=== PATIENT | female | born 1965 | race Caucasian/White ===

== ENCOUNTER 2016-12-04 15:53 | Emergency (ER) | payer OTHER ==
[~2016-12-04] VITALS: Ht 167.6 cm; Wt 50.8 kg
[2016-12-04 16:08] VITALS: BP 102/71
--- NOTE | 2016-12-04 16:22 | ED UPPER/LOWER EXTREMITY COMPL ---
History of Present Illness General Chief Complaint: Lower Extremity Problems Stated Complaint: RIGHT LEG ?BLOOD CLOT Source: patient, old records Exam Limitations: no limitations Vital Signs & Intake/Output Vital Signs & Intake/Output Vital Signs Date Time Temp Pulse Resp B/P Pulse O2 O2 Flow FiO2 Ox Delivery Rate 12/04 1608 99.7 65 20 102/71 99 Room Air Allergies Coded Allergies: No Known Allergies (12/04/16) Triage Note: TRIAGE: PT TO ER C/C PAIN TO R CALF X 2 DAYS, INTERMITTENT SINCE ONSET. WAS AT PT FOR MS TREATMENT AND THEY ADVISED SHE COME TO ER FOR EVAL. DENIES ANY RECENT TRAVEL OR BEING SEATED FOR LONG PERIODS OF TIME. DENIES ANY INJURIES. REFUSES OFFERED PAIN MEDS AT TRIAGE. Triage Nurses Notes Reviewed? yes Onset: Abrupt Duration: day(s): (2), intermittent, waxing and waning Timing: recent history Severity: mild, moderate Severity Numbers: 4 Pain/Injury Location: Right: Leg. Method of Injury: unknown Modifying Factors: Improves With: rest. Worsens With: movement. Associated Symptoms: none HPI: 51-year-old female with history of MS presents emergency room today complaining of a 2 day history of right calf pain and soreness that is worse with extension and flexion of the foot. The patient states the symptoms began after she awoke in the middle the night with a muscle cramp in her calf. The patient denies any known injury or trauma she denies swelling to her leg. She was going to physical therapy today when she told them of her symptoms and told her to come to the ER because they were concerned she had a blood clot. There is been no recent travel or immobility. She denies any chest pain shortness of breath fever chills rashes to her skin she is not taken anything for her symptoms and she denies any pain at this time. Past History Travel History Traveled to [place] past 21 day No Medical History Any Pertinent Medical History? see below for history Neurological: multiple sclerosis EENT: NONE Cardiovascular: NONE Respiratory: NONE Gastrointestinal: NONE Hepatic: NONE Renal: NONE Musculoskeletal: osteoporosis Psychiatric: NONE Endocrine: NONE Blood Disorders: ITP Cancer(s): NONE STRUCTURAL IRONWORKER/Reproductive: NONE Surgical History Surgical History: none Psychosocial History What is your primary language Albanian Tobacco Use: Never used ETOH Use: denies use Illicit Drug Use: denies illicit drug use Family History Hx Contributory? No Review of Systems Review of Systems Constitutional: Reports: see HPI. All Other Systems: Reviewed and Negative Comments Review of systems: See HPI, All other systems negative. Constitutional, no chills no fever, no malaise HEENT: No visual changes no sore throat no congestion Cardiovascular: No chest pain , no palpitation Skin, no rashes, no change in skin Respiratory: No dyspnea no cough no sputum GI: no nausea no vomiting, no diarrhea, no bloating/constipation : No dysuria No hematuria, no frequency Muscle skeletal: No joint pain, no back pain, no neck pain, Neurologic: No numbness no headache Psych: No stress Heme/endocrine: No bruising no bleeding Immunology: No lymphadenopathy Physical Exam Physical Exam General Appearance: well developed/nourished, no apparent distress, alert, awake Comments: Well-developed well-nourished patient in no apparent distress. HEENT: Atraumatic, extraocular motion intact Neck: Supple, FROM, no lymphadenopathy Back: FROM, Nontender Cardiovascular: Regular rate and rhythms no murmurs rubs Respiratory: No respiratory distress. Patient speaking in full complete sentences. Breath sounds clear to auscultation bilaterally: NO W/R/R Upper Extremities: full range of motion Hip/Pelvis: Atraumatic/Stable. FROM. No pain with pelvic compression Knee: Atraumatic/stable. FROM. No joint swelling, no effusion. No laxity. Negative daiana/anterior drawer test. No pain with ROM Leg: Atraumatic, tenderness to palpation over the right calf, pain is reproducible with flexion and extension of the foot No edema, 5 out of 5 strength in the lower extremity, normal dorsiflexion of great toe bilaterally, gross sensation is intact, patellar tendon reflex 2+ bilaterally. Ankle/Foot: Atraumatic/stable. Skin intact. FROM. No swelling, no effusion. No laxity on exam Pulses: Normal/equal DP/PT pulses bilaterally. Brisk cap refill Neuro: Alert and oriented x3 Skin: Warm & dry;No appreciable rash on exposed skin Psych: Mood affect normal, normal memory normal judgment. Progress Differential Diagnosis: compartment syndrome, contusion, DVT, sprain, tendon injury Plan of Care: Orders Procedure Date/time Status US-UNILATERAL VENOUS DOPPLER 12/04 1632 Active The patient denies any symptoms at this time ultrasound ordered 12/04/2016 5:22:08 PM discussed with the patient at length her ultrasound findings, she is ambulatory with steady gait advised Tylenol Motrin ice heat as needed. Advise close follow-up with her primary care on Wednesday, return anytime sooner with any concerns she feels comfortable this plan I answered all of her questions (CORTES BARONE,MARIAELENA) Diagnostic Imaging: Viewed by Me: Ultrasound. Discussed w/RAD: Ultrasound. Radiology Impression: PATIENT: MARTINA GODDARD PRESENT AGE: 51 PATIENT ACCOUNT NO: [id number] : 65 LOCATION: [facility] ORDERING PHYSICIAN: MARIAELENA BARONE SERVICE DATE: 12/04/16 EXAM TYPE: US - US- UNILATERAL VENOUS DOPPLER EXAMINATION: US TRIPLEX LOWER EXTREMITY, RIGHT CLINICAL INFORMATION: Right calf pain; question deep venous thrombosis. COMPARISON: None. TECHNIQUE: Color-flow triplex imaging with spectral analysis and compression Doppler were performed on the right lower extremity. FINDINGS: Respiratory variation, normal compression and augmented flow are noted throughout the lower extremity. The visualized common femoral vein, proximal greater saphenous vein, femoral vein, profunda femoral vein, popliteal vein and visualized mid calf venous segments show no evidence of deep venous thrombosis. There is no Wise's cyst. IMPRESSION: Normal triplex scan without evidence of deep venous thrombosis involving the right lower extremity. DICTATED BY: ARUNA BATRES MD DATE/TIME DICTATED:12/04/161709 JAVA LEAD DEVELOPER:LANNY DATE/ TIME TRANSCRIBED:12/04/161709 CONFIDENTIAL, DO NOT COPY WITHOUT APPROPRIATE AUTHORIZATION. <Electronically signed in Other Vendor System> SIGNED BY: ARUNA BATRES MD 12/04/161714 Departure Departure Disposition: HOME OR SELF CARE Condition: Stable Clinical Impression Primary Impression: Strain of calf muscle Referrals: MARIAELENA LOPEZ MD (PCP/Family) Additional Instructions: REST, ICE, TYLENOL OR MOTRIN NEEDED FOR PAIN. follow up with your primary care on wednesday, return with any concerns. Departure Forms: Customer Survey General Discharge Information
--- NOTE | 2016-12-04 17:15 | ULTRASOUND REPORT ---
EXAMINATION: US TRIPLEX LOWER EXTREMITY, RIGHT CLINICAL INFORMATION: Right calf pain; question deep venous thrombosis. COMPARISON: None. TECHNIQUE: Color-flow triplex imaging with spectral analysis and compression Doppler were performed on the right lower extremity. FINDINGS: Respiratory variation, normal compression and augmented flow are noted throughout the lower extremity. The visualized common femoral vein, proximal greater saphenous vein, femoral vein, profunda femoral vein, popliteal vein and visualized mid calf venous segments show no evidence of deep venous thrombosis. There is no Wise's cyst. IMPRESSION: Normal triplex scan without evidence of deep venous thrombosis involving the right lower extremity.
== END 2016-12-04 17:26 ==
LOC: ERH 15:53
DX: S86.911A Strain of unspecified muscle(s) and tendon(s) at lower leg level, right leg, initial encounter (principal)

== ENCOUNTER → 2018-04-06 | Day surgery (SDC) | payer OTHER ==
[~2018-04-06] VITALS: Ht 167.6 cm; Wt 56.7 kg
[~2018-04-06] MED LIST: PERCOCET 5-3251 EACH PO
--- NOTE | 2018-04-06 12:42 | Operative Report ---
Operative/Inv Procedure Report Surgery Date: 04/06/18 Name of Procedure: Open reduction internal fixation right distal radius intra-articular fracture 3 or more pieces Pre-Operative Diagnosis: Right distal radius fracture intra-articular 3 or more fragments Post-Operative Diagnosis: Same Estimated Blood Loss: scant Surgeon/Dissolver Operator: Vibha PRESSLEY,Ori BARONE Anesthesia: laryngeal mask airway IV Fluids: See anesthesia record Implants: Hand innovation distal radius plate and screws of appropriate length Specimens: None Tourniquet: 32 minutes Complications: None Condition: Stable Operative Indication: Patient is a 52-year-old female with multiple sclerosis who had a trip and fall on Wednesday. She landed on her outstretched right upper extremity and sustained a comminuted fracture of her distal radius. She was indicated for surgical fixation of her fracture. The risks and benefits of procedure were discussed with the patient in detail. Skills that he has necessary provided by physician cataloging assistant trauma generator with retraction and fracture reduction and implant assembly. Operative/Procedure Note Note: Once informed consent was obtained and the correct limb was identified and patient brought to have room placed on table in supine position. At the ministration of general endotracheal anesthesia the patient's right upper extremity had a tourniquet placed was prepped and draped in usual sterile fashion. To begin the procedure and volar incision was made over the flexor carpi radialis tendon. Sharp dissection was carried down through the skin and subcutaneous tissue with care to avoid neurovascular structures. The FCR sheath was incised. The flexor carpi radialis was retracted ulnarly. The deep muscles were bluntly dissected in the pronator quadratus was identified. Care was taken to avoid the radial artery. The pronator quadratus was removed from its insertion site on the radius and retracted ulnarly. The fracture was then identified. The fracture site was cleaned of any debris. Fracture reduction I was performed and held while a volar plate was placed on the radius. The plate was pinned in place with K wires in position of the plate was confirmed with many C arthroscopy and AP and lateral planes. Excellent reduction had been obtained in position of the plate was excellent. We then secured the plate to the proximal radius with a 3.5 cortical screw after drilling with a 2.5 drill. Then we began drilling the distal holes of the plate with the small drill bit. Using partially threaded screws of appropriate length all of the holes of the distal portion of the plate were filled and screw length was checked with mini C -arm fluoroscopy. This reduction was maintained. Smooth pegs were then placed in the most distal row of the plate without complication. Finally 2 more 3.5 cortical screws were placed in the radial shaft first fixation purposes. Final mini C-arm images in the AP and lateral planes confirmed excellent reduction of the fracture site with good screw length. There was no crepitus with range of motion of the wrist with flexion and extension or pronation supination. The wound was copiously irrigated with sterile saline. The subcutaneous tissues closed with 3-0 Vicryl interrupted sutures and the skin was closed with a running subcuticular stitch. Sterile dressing and spent was applied and the patient was awakened taken from stable condition.
== END ==
LOC: STS 02:46
DX: S52.571A Other intraarticular fracture of lower end of right radius, initial encounter for closed fracture (principal); W01.0XXA Fall on same level from slipping, tripping and stumbling without subsequent striking against object, initial encounter; G35 Multiple sclerosis; E24.9 Cushing's syndrome, unspecified; I95.9 Hypotension, unspecified; D69.3 Immune thrombocytopenic purpura
CPT/HCPCS: C1713; J0690; J2250